=== PATIENT | male | born 1980 | race African-American/Black ===

== ENCOUNTER 2016-07-14 12:00 | Emergency (ER) | payer SELFPAY ==
[~2016-07-14] VITALS: Ht 177.8 cm; Wt 98.0 kg
[2016-07-14 12:05] VITALS: BP 111/70; PULSE 65; RESP 16; TEMP 98.4; O2SAT 96
--- NOTE | 2016-07-14 12:15 | PD ---
HPI . sore throat for 3 days Chief Complaint: Cold / Flu Symptoms Time Seen by Provider: 12:12 Travel History International Travel<30 days: No Contact w/Intl Traveler<30days: No Traveled to known affect area: No History of Present Illness HPI 35-year-old male with no significant past medical history here with complaints of cold and sore throat for 3 days. States that he tried [id number] formulations without any improvement. He was told by his mother that he would likely need antibiotics. He denies any fever, chills, chest pain, nausea, vomiting, or abdominal pain. PFSH Social History Tobacco Use: No Allergies-Medications (Allergen,Severity, Reaction): Coded Allergies: No Known Allergies (Unverified , 07/14/16) Reported Meds & Prescriptions Reported Meds & Active Scripts Active No Active Prescriptions or Reported Medications Review of Systems General / Constitutional: No: Fever Eyes: No: Visual changes HENT: Positive: Sore Throat, No: Headaches Cardiovascular: No: Chest Pain or Discomfort Respiratory: No: Shortness of Breath Gastrointestinal: No: Abdominal Pain Genitourinary: No: Dysuria Musculoskeletal: No: Pain Skin: No Rash Neurologic: No: Weakness Psychiatric: No: Depression Endocrine: No: Polydipsia Hematologic/Lymphatic: No: Easy Bruising Physical Exam Narrative GENERAL: AAO x 3, no acute distress, Well-nourished, well-developed patient. Comfortable. SKIN: Warm and dry. No visible rashes or bruising. HEAD: Normocephalic and atraumatic. EYES: No scleral icterus. No injection or drainage. ENT: No nasal drainage noted. Mucous membranes pink. Airway patent. Normal posterior pharynx. No exudates. No postnasal drip. TMs are normal bilaterally NECK: Supple, trachea midline. No JVD. No lymphadenopathy. CARDIOVASCULAR: Regular rate and rhythm without murmurs, gallops, or rubs. RESPIRATORY: Breath sounds equal bilaterally. No accessory muscle use. No rhonchi or rales. GASTROINTESTINAL: Abdomen soft, non-tender, nondistended. EXTREMITIES: No cyanosis or edema. BACK: Nontender without obvious deformity. No CVA tenderness. PSYCH: AAO x 3, normal affect. Data Data Last Documented VS Vital Signs Date Time Temp Pulse Resp B/P Pulse Ox O2 Delivery O2 Flow Rate FiO2 07/14/16 12:11 Room Air 07/14/16 12:05 98.4 65 16 111/70 96 [facility] Medical Decision Making Medical Screen Exam Complete: Yes Emergency Medical Condition: Yes Medical Record Reviewed: Yes Differential Diagnosis viral pharyngitis, sinusitis, viral syndrome Narrative Course 35-year-old male with no significant past medical history here with complaints of cold and sore throat for 3 days. States that he tried [id number] formulations without any improvement. He was told by his mother that he would likely need antibiotics. He denies any fever, chills, chest pain, nausea, vomiting, or abdominal pain. There are no acute findings on exam. A medical screening exam was performed: At the time of evaluation the presenting medical condition was determined not to be of an emergent nature. The patient was given the option of receiving additional care, but declined. Patient was given options for additional community resources from which to obtain care. The Patient Has Been advised to seek medical attention for their presenting complaint. The patient has been advised to return to the ER at any time if an emergent condition develops. Diagnosis Primary Impression: Encounter for medical screening examination Scripts No Active Prescriptions or Reported Meds Condition: Crystal Barroso Jul 14, 2016 12:15
== END 2016-07-14 12:20 | disposition left against medical advice (07) ==
LOC: PHEFT 12:00
DX: J02.9 Acute pharyngitis, unspecified (principal)
CPT/HCPCS: 99281